=== PATIENT | female | born 1975 | race African-American/Black ===

== ENCOUNTER 2022-11-18 21:31 | Emergency (ER) | payer OTHER, SELFPAY ==
--- NOTE | 2022-11-18 | ECG_ITS ---
Test Reason : CHEST PAIN Blood Pressure : / mmHG Vent. Rate : 067 BPM Atrial Rate : 067 BPM P-R Int : 176 ms QRS Dur : 086 ms QT Int : 396 ms P-R-T Axes : 070 031 060 degrees QTc Int : 418 ms Normal sinus rhythm with sinus arrhythmia T wave abnormality, consider anterior ischemia Abnormal ECG No previous ECGs available Referred By: Generic ED Physician Electronically Signed By:Bridger Smith
[2022-11-18 21:41] VITALS: BP 122/78; BP 134/78; PULSE 67; PULSE 68; RESP 20; TEMP 37.2; O2SAT 100; O2SAT 98; BMI 31.9
[2022-11-18 22:07] LABS: Hematocrit 39.4 % (37.0-47.0); Hemoglobin 12.4 g/dl (12.0-16.0); Mean Corpuscular HGB Conc 31.5 g/dl (31.0-35.0); Mean Corpuscular Hemoglobin 25.2 pg (27.0-33.0); Mean Corpuscular Volume 79.9 fL (80.0-98.0); Mean Platelet Volume 11.6 fL (9.4-12.3); Platelet Count 212 X10*3/uL (160-400); Red Blood Count 4.93 X10*6/uL (4.20-5.50); Red Cell Distribution Width 13.2 % (11.0-16.0)
[2022-11-18 22:23] LABS: Alanine Aminotransferase 13 U/L (0-31); Albumin Level 3.9 g/dL (3.5-5.0); Alkaline Phosphatase 79 U/L (39-117); Anion Gap 10 (12-20); Aspartate Amino Transferase 17 U/L (5-31); Bilirubin Total 0.2 mg/dL (0.0-1.0); Blood Urea Nitrogen 8 mg/dL (9-16); Calcium 8.9 mg/dL (8.4-10.2); Carbon Dioxide 29 mmol/L (22-29); Chloride 106 mmol/L (96-108); Creatinine Clr Calc Pharmacy 70.3; Estimated Glomerular Filt Rate > 60; Glucose Random 89 mg/dL (60-115); Potassium 4.3 mmol/L (3.3-5.1); Sodium 141 mmol/L (135-145)
[2022-11-18 22:30] LABS: Troponin-I High Sensitivity < 2.7 ng/L (<3.5-17.0)
[2022-11-18 23:18] VITALS: BP 126/78; PULSE 64; RESP 16; TEMP 36.9; O2SAT 98
--- NOTE | 2022-11-18 23:20 | ED_ITS ---
HPI - Chest Pain General Chief Complaint: Chest Pain Stated Complaint: CHEST PAIN X 3 DAYS Time Seen by Provider: 11/18/22 23:19 Source: patient Mode of arrival: ambulatory Limitations: no limitations History of Present Illness HPI narrative: Patient With no significant cardiac history in the past increased anxiety and stress complaining of mid chest pain for last 3 days increase on palpation no shortness of breath has slight nausea no radiation of the pain has poor sleep Related Data Previous Rx's Medication Instructions Recorded ibuprofen 600 mg tablet 600 mg PO Q6H PRN fever or pain 11/18/22 #30 tabs lorazepam 1 mg tablet (Ativan) 1 mg PO BEDTIME PRN anxiety #10 11/18/22 tabs Allergies Allergy/AdvReac Type Severity Reaction Status Date / Time cinnamon AdvReac Hives Verified 11/18/22 21:54 pepper (genus Capsicum) AdvReac Anaphylaxis Verified 11/18/22 21:54 Review of Systems Review of Systems: Yes all other systems are reviewed and are negative [facility] Social History Social History Alcohol intake: never Smoked in Last 30 Days: No Use of substances other than those prescribed or required for medical reasons: No Advance Directives: No Advance Directives Information Provided: No Patient : No Physical Exam Vital Signs: Vital Signs: Last Vital Signs Temp 98.4 F 11/18/22 23:18 Pulse 64 11/18/22 23:18 Resp 16 11/18/22 23:18 BP 126/78 11/18/22 23:18 Pulse Ox 98 11/18/22 23:18 O2 Del Method Room Air 11/18/22 21:41 BMI result Body Mass Index 31.9 Appearance: Alert. Oriented X3. No acute distress. Eyes: PERRLA, No Nystagmus ENT: Pharynx normal. Oral Mucosa moist Neck: Normal inspection. Neck supple. CVS: Normal heart rate and rhythm. Pulses normal. Chest wall tenderness right intercostal space Respiratory: No respiratory distress. Equal air entry bilateral, no wheezing/rales/rhonchi Abdomen: Soft and nontender. Bowel sounds are present, no mass palpable, no CVA tenderness Skin: Skin warm and dry. Normal skin color. Normal skin turgor. Extremities: No lower extremity edema. No calf tenderness Neuro: Oriented X 3. No motor deficit. No sensory deficit.No cerebellar signs , cranial nerves II-XII intact Medications Administered Discontinued Medications Generic Name Dose Route Start Last Admin Trade Name Erick PRN Reason Stop Dose Admin Ibuprofen 600 mg 11/18/22 23:50 11/19/22 00:10 Ibuprofen 600 Mg Tablet PO 11/18/22 23:51 600 mg ONCE ONE Administration Lorazepam 1 mg 11/18/22 23:50 11/19/22 00:10 Lorazepam 1 Mg Tablet PO 11/18/22 23:51 1 mg ONCE ONE Administration Medical Decision Making Differential Diagnosis Differential Diagnoses: The differential diagnosis associated with the presentation includes ACS/non STEMI/costochondritis Lab Data MDM Lab Attestation statement: I reviewed the patient's lab results. 11/18/22 22:02 11/18/22 22:02 Labs: Lab Results 11/18/22 11/18/22 11/18/22 Range/Units 22:02 22:02 22:02 WBC 7.0 (4.8-10.8) X10*3/uL RBC 4.93 (4.20-5.50) X10*6/uL Hgb 12.4 (12.0-16.0) g/dl Hct 39.4 (37.0-47.0) % MCV 79.9 L (80.0-98.0) fL MCH 25.2 L (27.0-33.0) pg MCHC 31.5 (31.0-35.0) g/dl RDW 13.2 (11.0-16.0) % Plt Count 212 (160-400) X10*3/uL MPV 11.6 (9.4-12.3) fL Absolute Nucleated RBC 0.000 (0.0-0.012) X10*3/uL Nucleated RBC % (auto) 0.0 (0.0-0.2) /100WBC Sodium 141 (135-145) mmol/L Potassium 4.3 (3.3-5.1) mmol/L Chloride 106 (96-108) mmol/L Carbon Dioxide 29 (22-29) mmol/L Anion Gap 10 L (12-20) BUN 8 L (9-16) mg/dL Creatinine 0.87 (0.5-1.4) mg/dL Estim Creat Clear Calc 70.3 Estimated GFR > 60 Random Glucose 89 (60-115) mg/dL Calcium 8.9 (8.4-10.2) mg/dL Total Bilirubin 0.2 (0.0-1.0) mg/dL AST 17 (5-31) U/L ALT 13 (0-31) U/L Alkaline Phosphatase 79 (39-117) U/L Troponin I High Sens < 2.7 (<3.5-17.0) ng/L Total Protein 7.0 (6.5-8.0) g/dL Albumin 3.9 (3.5-5.0) g/dL Independent Interpretation I performed an independent interpretation of an: EKG Interpretation: Normal sinus rhythm heart rate 64 beats per minute normal interval normal axis no acute ST wave changes no acute ischemia Discharge Plan Discharge Clinical Impression: Atypical chest pain, Costalchondritis Patient Disposition: Home, Self-Care Instructions: Costochondritis (ED), Chest Wall Pain (ED) Additional Instructions: Take ibuprofen for pain as prescribed The chest pain is not from the heart, likely inflammation of the cartilage Take medicine for anxiety/sleep as prescribed [place] ibuprofeno para el dolor seg?n lo prescrito El dolor de pecho no es del coraz?n, probablemente inflamaci?n del cart?fanny [place] medicamentos para la ansiedad/marcio?o seg?n lo prescrito Prescriptions: New ibuprofen 600 mg tablet 600 mg PO Q6H PRN (Reason: fever or pain) Qty: 30 0RF lorazepam [Ativan] 1 mg tablet 1 mg PO BEDTIME PRN (Reason: anxiety) Qty: 10 0RF Interventions: ED Discharge Assessment Last Done: 11/19/22 00:12 Discharge Date/Time: 11/19/22 00:22 Print Language: Pashto
[2022-11-19] MEDS: Ibuprofen 600 MG TABLET PO (00:10)
[2022-11-19] MEDS: LORazepam 1 MG TABLET PO (00:10)
== END 2022-11-19 00:22 | disposition home or self-care (01) ==
PROVIDERS: Emergency Provider Internal Medicine
DX: R07.89 Other chest pain (principal); M94.0 Chondrocostal junction syndrome [Tietze]
CPT/HCPCS: 36415; 80053; 84484; 85027; 93005; 99283; 99285

== ENCOUNTER → 2022-11-18 21:42 | Outpatient (BNV) | payer OTHER, SELFPAY | PROVIDERS: Emergency Provider Internal Medicine; Visit Provider Internal Medicine Cardiovascular Disease | DX: I49.9 Cardiac arrhythmia, unspecified (principal) | CPT/HCPCS: 93010 ==

== ENCOUNTER 2023-04-27 18:15 | Emergency (ER) | payer OTHER, SELFPAY ==
--- NOTE | ~2023-04-27 | CT_ITS ---
EXAMINATION: CT ANGIOGRAM HEAD CT ANGIOGRAM NECK CLINICAL INFORMATION: Headache. Left-sided weakness. COMPARISON: CT head from 04/27/2023. TECHNIQUE: Initial noncontrast events solutions consultant imaging of the head and neck was performed. Comparison is made with noncontrast head CT from earlier today. Test bolus sequences followed by intravenous administration 70 mL of Omnipaque 350. Helical imaging was performed in the axial plane from the aortic arch to the skull vertex. Delayed postcontrast imaging of the head was also performed. The data was processed at the nuclear medicine technologist's workstation for generation of MIP sequences. Angled MIPs and volume rendered reformatted images were also generated at an offline 3D workstation. Stenoses are assessed in accordance with NASCET criteria unless otherwise indicated. This CT examination was performed using dose optimization techniques as appropriate, variously including the following: *Automated exposure control. *Adjustment of mA and/or kV according to patient size (this includes techniques or standardized protocols for targeted exams where dose is matched to indication/reason for exam; i.e. extremities or head). *Use of iterative reconstruction technique. DLP: 1428 mGy-cm FINDINGS: CT Head: There is no evidence of acute intracranial hemorrhage or edematous territorial infarction. Jett-white matter differentiation is preserved. There is no abnormal attenuation within the brain parenchyma. The ventricles are normal in morphology and size. No evidence for obstructive hydrocephalus. No abnormal mass effect or midline shift. No extra-axial fluid collections. No pathologic intra-axial enhancement or regional oligemia. No acute soft tissue or osseous abnormalities. Mild mucosal thickening of the paranasal sinuses. The mastoid air cells and middle ear cavities are clear. Periapical lucency associated with the mandibular right central and lateral incisors. CT Neck: The thyroid gland and remaining cervical soft tissues are within normal limits. Mild multilevel degenerative spondyloarthropathy of the cervical spine. CT Upper Chest: Narrowing of the left brachiocephalic vein between the aortic arch and the sternum. Associated reflux of venous contrast into collaterals within the left-sided of neck. The visualized lung apices and upper mediastinum are within normal limits. Neck CTA: Aortic Arch: Normal contour and caliber. Classic 3 vessel branching pattern of the aortic arch. Great Vessel Origins: No significant stenosis of the branch origins. Right Common Carotid Artery: No focal stenosis or occlusion. 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 Otherwise, normal opacification without focal stenosis or occlusion. Left Common Carotid Artery: No focal stenosis or occlusion. Cervical Left Internal Carotid Artery: Normal opacification without focal stenosis or occlusion. Cervical Right Vertebral Artery: No focal stenosis or occlusion. Cervical Left Vertebral Artery: Mildly dominant. No focal stenosis or occlusion. Brain CTA: Intracranial Internal Carotid Arteries: Calcific atherosclerotic disease of the intracranial internal carotid arteries without occlusion. Moderate stenoses of the supraclinoid segments bilaterally. Right Anterior Cerebral Artery: Normal A1 segment. Normal opacification of the distal HAWK segments. Left Anterior Cerebral Artery: Normal A1 segment. Normal opacification of the distal HAWK segments. Anterior Communicating Artery: Normal. Right Middle Cerebral Artery: Normal M1 segment of the MCA without focal stenosis or occlusion. Normal arborization of the distal segments. Left Middle Cerebral Artery: Normal M1 segment of the MCA without focal stenosis or occlusion. Normal arborization of the distal segments. Right Vertebral Artery: Normal V4 segment. The posterior inferior cerebellar artery is not well opacified; however, there is no CT evidence of acute occlusion. Left Vertebral Artery: Normal V4 segment. Normal opacification of the proximal segments of the posterior inferior cerebellar artery. Basilar Artery: Normal without focal stenosis or occlusion. Normal appearance of the proximal superior cerebellar arteries. Right Posterior Cerebral Artery: Normal P1 segment. Normal opacification of the distal MARKET RESEARCH COORDINATOR segments. Left Posterior Cerebral Artery: Normal P1 segment. Normal opacification of the distal MARKET RESEARCH COORDINATOR segments. Normal opacification of the superior sagittal, straight, transverse, and sigmoid sinuses. CT/CT angio head neck stroke IMPRESSION: 1. No evidence of acute intracranial hemorrhage or edematous territorial infarction. 2. CTA of the head and neck without proximal occlusion. Moderate atherosclerotic stenoses of the supraclinoid segments of the ICAs bilaterally. 3. 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 This critical result was discussed with Dr. Schofield at 19:41 on 04/27/2023 and it was ascertained that the content and urgency of the report was understood at the time of direct communication.
--- NOTE | ~2023-04-27 | CT_ITS ---
EXAMINATION: CT HEAD WITHOUT CONTRAST CLINICAL INFORMATION: Left-sided weakness. Cerebrovascular accident. COMPARISON: None available. TECHNIQUE: Contiguous axial imaging was performed from the skull base to vertex without intravenous administration of contrast. This CT examination was performed using dose optimization techniques as appropriate, variously including the following: *Automated exposure control. *Adjustment of mA and/or kV according to patient size (this includes techniques or standardized protocols for targeted exams where dose is matched to indication/reason for exam; i.e. extremities or head). *Use of iterative reconstruction technique. DLP: 640 mGy-cm FINDINGS: There is no evidence of acute intracranial hemorrhage or edematous territorial infarction. Jett-white matter differentiation is preserved. There is no abnormal attenuation within the brain parenchyma. The ventricles are normal in morphology and size. No evidence for obstructive hydrocephalus. No abnormal mass effect or midline shift. No extra-axial fluid collections. Calcific atherosclerotic disease of the intracranial internal carotid arteries. No hyperdense vessel sign. No acute soft tissue or osseous abnormalities. Mild mucosal thickening of the paranasal sinuses. The mastoid air cells and middle ear cavities are clear. CT/CT head for stroke IMPRESSION: No evidence of acute intracranial hemorrhage or edematous territorial infarction. This critical result was discussed with at 18:44 on 04/27/2023 and it was ascertained that the content and urgency of the report was understood at the time of direct communication.
--- NOTE | 2023-04-27 18:23 | ED_ITS ---
HPI - Headache General Chief Complaint: Stroke Stated Complaint: pressure/burning feeling in head Time Seen by Provider: 04/27/23 18:31 Source: patient Mode of arrival: ambulatory Limitations: language barrier History of Present Illness HPI Narrative: Patient's history of migraine headache complaining of headache on the right side with light sensitivity similar to that in the past at the triage nurse noticed slight weakness on the left side patient also does have history of anxiety used to be on lorazepam changed to Seroquel has not taken her lorazepam for a while unable to sleep patient ambulatory as such without any significant weakness does have light sensitivity and headache similar to that in the past which she gets almost every week Related Data Previous Rx's Medication Instructions Recorded ibuprofen 600 mg tablet 600 mg PO Q6H PRN fever or pain 11/18/22 #30 tabs lorazepam 1 mg tablet (Ativan) 1 mg PO BEDTIME PRN anxiety #10 11/18/22 tabs lmvbubkgjf-wdlhjbmhhameo-lbgcfbkd 1 tab PO Q6H PRN haeadace #20 tabs 04/27/23 50 mg-325 mg-40 mg tablet Allergies Allergy/AdvReac Type Severity Reaction Status Date / Time cinnamon AdvReac Hives Verified 04/27/23 18:25 pepper (genus Capsicum) AdvReac Anaphylaxis Verified 11/18/22 21:54 Review of Systems 2 Review of Systems: Yes all other systems are reviewed and are negative PMFSH Past Medical History Onset Date is defined in the Problem List Problems that require an onset date and time if occurred within 24 hrs of arrival to the ED Aortic Dissection and Rupture; Neurologic impairment; Cardiopulmonary Arrest; Endotracheal Intubation; Insertion or Replacement of Mechanical Circulatory Assist Device Medical History Migraine Social History Social History Alcohol intake: never Smoked in Last 30 Days: No Use of substances other than those prescribed or required for medical reasons: No Advance Directives: No Advance Directives Information Provided: No Patient : No Physical Exam 2 Vital Signs: Vital Signs: Last Vital Signs Temp 98.0 F 04/27/23 22:19 Pulse 69 04/27/23 22:19 Resp 16 04/27/23 22:19 BP 131/86 04/27/23 22:19 Pulse Ox 100 04/27/23 22:19 O2 Del Method Room Air 04/27/23 22:19 BMI result Body Mass Index 29.3 Appearance: Alert. Oriented X3. No acute distress. Eyes: PERRLA, No Nystagmus light sensitivity++ ENT: Pharynx normal. Oral Mucosa moist Neck: Normal inspection. Neck supple. CVS: Normal heart rate and rhythm. Pulses normal. Respiratory: No respiratory distress. Equal air entry bilateral, no wheezing/rales/rhonchi Abdomen: Soft and nontender. Bowel sounds are present, no mass palpable, no CVA tenderness Skin: Skin warm and dry. Normal skin color. Normal skin turgor. Extremities: No lower extremity edema. No calf tenderness Neuro: Oriented X 3. No motor deficit. No sensory deficit.No cerebellar signs , cranial nerves II-XII intact NIH Stroke Scale Internal: Initial- Upon Arrival Level of Consciousness: Alert Level of Consciousness Questions: Answers both questions correctly Level of Consciousness Commands: Performs both tasks correctly Best Gaze: Normal Visual: No visual loss Facial Palsy: Normal Motor Arm (Right): No drift Motor Arm (Left): No drift Motor Leg (Right): No drift Motor Leg (Left): No drift Limb Ataxia: Absent Sensory: Normal Best Language: No aphasia Dysarthia: Normal Extinction and Inattention: No abnormality Score: 0 Course Course Course Narrative: This is an RME: Additional HPI, ROS, PE not included below will be deferred to primary provider. This is a 33-rhzw-lta-female, with a hx of migraines, epilepsy, asthma, presenting to the ER with complaints of headache x 3 days. Reports that this headache worsens with light. Reporting burning on the right side of her face. Reports some congestion, no cough or fevers. Reporting some left arm weakness and left-sided facial weakness since this afternoon approximately 1:00 p.m. Patient does have left-sided facial droop and left pronator drift. Informed Dr. Schofield, patient immediately brought back to room for further workup Medications Administered Discontinued Medications Generic Name Dose Route Start Last Admin Trade Name Freq PRN Reason Stop Dose Admin Acetaminophen/Butalbital/Caffeine 1 tab 04/27/23 20:27 04/27/23 20:33 Butalb/Acetamin/Caff 50/325/40 Tablet PO 04/27/23 20:28 1 tab ONCE ONE Administration Diphenhydramine HCl 25 mg 04/27/23 20:26 04/27/23 20:35 Diphenhydramine Hcl 50 Mg/Ml Vial IVPUSH 04/27/23 20:27 25 mg ONCE ONE Administration Sodium Chloride 1,000 mls @ 999 mls/hr 04/27/23 20:26 04/27/23 20:34 Ns IV 04/27/23 21:26 999 mls/hr .Q1H1M ONE Administration Iohexol 100 ml 04/27/23 18:54 04/27/23 18:55 Iohexol 350 Mg/Ml 100 Ml Infus..Btl IV 04/27/23 18:55 70 ml ONCE ONE Administration Ketorolac Tromethamine 30 mg 04/27/23 20:26 04/27/23 20:37 Ketorolac Tromethamine 30 Mg/Ml Vial IVPUSH 04/27/23 20:27 30 mg ONCE ONE Administration Lorazepam 1 mg 04/27/23 21:20 04/27/23 21:30 Lorazepam 1 Mg Tablet PO 04/27/23 21:21 1 mg ONCE ONE Administration Ondansetron HCl 4 mg 04/27/23 19:13 04/27/23 19:21 Ondansetron Hcl 4 Mg/2 Ml Vial IVPUSH 04/27/23 19:14 4 mg ONCE ONE Administration Sumatriptan Succinate 6 mg 04/27/23 19:13 04/27/23 19:21 Sumatriptan Succinate 6 Mg/0.5 Ml Vial SUBCUT 04/27/23 19:14 6 mg ONCE ONE Administration Medical Decision Making Medical Decision Making [facility] Narrative: Patient with migraine headache with questionable weakness of the left side at the triage onset was around 1pm patient had a CT scan of the head and CTA head and neck which was negative symptoms likely from migraine no focal deficit noticed examination in the ER patient ambulatory steady gait will discharge patient home advised to continue her medication and take Fioricet for headache Differential Diagnosis Differential Diagnoses: The differential diagnosis associated with the presentation includes Complex migraine/CVA/TIA/functional weakness Lab Data [facility] Lab Attestation statement: I reviewed the patient's lab results. 04/27/23 19:12 04/27/23 19:12 Labs: Lab Results 04/27/23 04/27/23 04/27/23 Range/Units 19:05 19:06 19:12 WBC 7.0 (4.8-10.8) X10*3/uL RBC 5.54 H (4.20-5.50) X10*6/uL Hgb 13.5 (12.0-16.0) g/dl Hct 42.2 (37.0-47.0) % MCV 76.2 L (80.0-98.0) fL MCH 24.4 L (27.0-33.0) pg MCHC 32.0 (31.0-35.0) g/dl RDW 13.9 (11.0-16.0) % Plt Count 243 (160-400) X10*3/uL MPV 11.3 (9.4-12.3) fL Immature Gran % (Auto) 0.3 (0.0-0.4) % Neut % (Auto) 43.8 L (45-73) % Lymph % (Auto) 38.4 (20-40) % [place] % (Auto) 10.0 (2-11) % Eos % (Auto) 6.8 H (0-4) % Baso % (Auto) 0.7 (0-2) % Lymph # (Auto) 2.7 (1.2-4.9) X10*3/uL [place] # (Auto) 0.7 (0.1-1.2) X10*3/uL Eos # (Auto) 0.5 H (0.0-0.4) X10*3/uL Baso # (Auto) 0.1 (0.0-0.2) X10*3/uL Abs Immat Gran (auto) 0.02 (0.00-0.03) X10*3/uL Absolute Neuts (auto) 3.1 (2.0-8.3) x10*3/uL Absolute Nucleated RBC 0.000 (0.0-0.012) X10*3/uL Nucleated RBC % (auto) 0.0 (0.0-0.2) /100WBC PT 12.4 (11.1-13.3) SEC Whole Blood PT 12.9 (11.1-13.5) sec INR 1.0 (0.9-1.1) Whole Blood INR 1.1 (0.9-1.1) APTT 35.0 (26.0-36.4) SEC Sodium 142 (135-145) mmol/L Potassium 4.0 (3.3-5.1) mmol/L Chloride 106 (96-108) mmol/L Carbon Dioxide 29 (22-29) mmol/L Anion Gap 11 L (12-20) BUN 9 (9-16) mg/dL Creatinine 0.93 (0.5-1.4) mg/dL Estim Creat Clear Calc 62.9 Estimated GFR > 60 POC Glucose 78 (60-115) mg/dL Random Glucose 70 (60-115) mg/dL Calcium 9.5 D (8.4-10.2) mg/dL Total Creatine Kinase 74 (26-140) U/L Troponin I High Sens < 2.7 (<3.5-17.0) ng/L Independent Interpretation I performed an independent interpretation of an: CT Scan Radiology Impression Discussion of test interpretation with radiology: I have reviewed the radiologist's reading. Discharge Plan Discharge Clinical Impression: Migraine headache Patient Disposition: Home, Self-Care Instructions: Migraine Headache (ED) Additional Instructions: rest at home Take medication as prescribed for migraine headache Continue to take Seroquel as prescribed byyour PCP for sleep [place]cans[place] en [place] los medicamentos recetados para la migra?a. Contin?e tomando Seroquel seg?n lo recetado por muhammad PCP para dormir. Prescriptions: New vizljqtupf-dcwsfdynzuvwl-qjzx 50-325-40 mg tablet 1 tab PO Q6H PRN (Reason: haeadace) Qty: 20 0RF No Action ibuprofen 600 mg tablet 600 mg PO Q6H PRN (Reason: fever or pain) Qty: 30 0RF lorazepam [Ativan] 1 mg tablet 1 mg PO BEDTIME PRN (Reason: anxiety) Qty: 10 0RF Print Language: Maltese
[2023-04-27 18:27] VITALS: BP 147/90; PULSE 82; RESP 20; TEMP 36.7; O2SAT 99; BMI 29.3
[2023-04-27] MEDS: iohexoL 350 MG/ML 100 ML INFUS..BTL IV (18:55)
[2023-04-27 19:12] LABS: Glucose, Whole Blood 78 mg/dL (60-115)
[2023-04-27 19:12] LABS: Prothrombin Time Whole Bld POC 12.9 sec (11.1-13.5); ~PT, ~INR - Anti Coag Clinic 1.1 (0.9-1.1)
[2023-04-27 19:16] LABS: MANUAL DIFF FLAG NO
[2023-04-27 19:19] LABS: Basophils Absolute Auto 0.1 X10*3/uL (0.0-0.2); Basophils Percent Auto 0.7 % (0-2); Eosinophils Absolute Auto 0.5 X10*3/uL (0.0-0.4); Eosinophils Percent Auto 6.8 % (0-4); Hematocrit 42.2 % (37.0-47.0); Hemoglobin 13.5 g/dl (12.0-16.0); Imm Gran Abs Auto 0.02 X10*3/uL (0.00-0.03); Imm Gran Pct Auto 0.3 % (0.0-0.4); Lymphocytes Absolute Auto 2.7 X10*3/uL (1.2-4.9); Lymphocytes Percent Auto 38.4 % (20-40); Mean Corpuscular Hemoglobin 24.4 pg (27.0-33.0); Mean Corpuscular Volume 76.2 fL (80.0-98.0); Mean Platelet Volume 11.3 fL (9.4-12.3); Monocytes Absolute Auto 0.7 X10*3/uL (0.1-1.2); Neutrophils Absolute Auto 3.1 x10*3/uL (2.0-8.3); Neutrophils Percent Auto 43.8 % (45-73); Platelet Count 243 X10*3/uL (160-400); Red Blood Count 5.54 X10*6/uL (4.20-5.50); Red Cell Distribution Width 13.9 % (11.0-16.0)
[2023-04-27] MEDS: SUMAtriptan succinate 6 MG/0.5 ML VIAL SUBCUT (19:21)
[2023-04-27] MEDS: ondansetron HCL 4 MG/2 ML VIAL IVPUSH (19:21)
[2023-04-27 19:24] LABS: Prothrombin Time 12.4 SEC (11.1-13.3)
--- NOTE | 2023-04-27 19:30 | PC.NURSE ---
this rn assumed care of pt @ 1900. per dr barrett pt not stroke alert, with no noted deficits. pt report migraine PLASENCIA 01/21 dr barrett declines need for ekg
[2023-04-27 19:32] LABS: Anion Gap 11 (12-20); Blood Urea Nitrogen 9 mg/dL (9-16); Calcium 9.5 mg/dL (8.4-10.2); Carbon Dioxide 29 mmol/L (22-29); Chloride 106 mmol/L (96-108); Creatinine Clr Calc Pharmacy 62.9; Estimated Glomerular Filt Rate > 60; Glucose Random 70 mg/dL (60-115); Sodium 142 mmol/L (135-145)
[2023-04-27 19:36] LABS: Stroke Lab Use COMPLETE
[2023-04-27 19:39] LABS: Troponin-I High Sensitivity < 2.7 ng/L (<3.5-17.0)
[2023-04-27] MEDS: Butalb/Acetamin/Caff 50/325/40 TABLET 1 TAB PO (20:33)
[2023-04-27] MEDS: 0.9 % Sodium Chloride 1,000 ML 999 ML IV (20:34)
[2023-04-27] MEDS: diphenhydrAMINE HCL 50 MG/ML VIAL 25 MG IVPUSH (20:35)
[2023-04-27] MEDS: Ketorolac Tromethamine 30 MG/ML VIAL IVPUSH (20:37)
[2023-04-27] MEDS: LORazepam 1 MG TABLET PO (21:30)
--- NOTE | 2023-04-27 22:14 | MHC.EDTECH ---
Per provider Cancel EKG
[2023-04-27 22:19] VITALS: BP 131/86; PULSE 69; RESP 16; TEMP 36.7; O2SAT 100
--- NOTE | 2023-04-27 22:35 | PC.NURSE ---
pt reports pain down to 8/10 at time of discharge. pt daughter remains at bedside. pt ambulatory at discharge vss. pt provided with discharge packet. pt verbalized understanding of discharge plan. phd internship used at time of discharge
== END 2023-04-27 22:39 | disposition home or self-care (01) ==
PROVIDERS: Emergency Provider Internal Medicine; PCP Internal Medicine
DX: G43.909 Migraine, unspecified, not intractable, without status migrainosus (principal); R09.81 Nasal congestion; M62.81 Muscle weakness (generalized); M54.2 Cervicalgia; Z79.899 Other long term (current) drug therapy
CPT/HCPCS: 36415; 70450; 70496; 70498; 80048; 82550; 82947; 84484; 85025; 85610; 85730; 96372; 96374; 96375; 99284; J1200; J1885; J2405; J3030; Q9967

== ENCOUNTER 2024-01-02 18:35 | Emergency (ER) | payer OTHER, SELFPAY ==
--- NOTE | ~2024-01-02 | XR_ITS ---
EXAMINATION: XR ANKLE, LEFT CLINICAL INFORMATION: Lateral echo. COMPARISON: None available. TECHNIQUE: AP, lateral, and mortise views of the left ankle. FINDINGS: No fracture. Alignment is anatomic. No erosions. Joint spaces are maintained. Lateral soft tissue swelling XR/XR ankle LT min 3V IMPRESSION: No acute traumatic injury to the ankle. Electronically signed by: Jameson Ward DO 01/02/2024 08:36 PM EDT
--- NOTE | ~2024-01-02 | XR_ITS ---
EXAMINATION: XR FOOT, LEFT CLINICAL INFORMATION: Dorsal foot pain status post fall COMPARISON: None available. TECHNIQUE: AP, lateral, and oblique views of the left foot. FINDINGS: The bones and soft tissues are normal. No fracture. Alignment is anatomic. Joint spaces are maintained. XR/XR foot LT min 3V IMPRESSION: Normal left foot. Electronically signed by: Adam Posada MD 01/02/2024 08:36 PM EDT RP
[2024-01-02 18:58] VITALS: BP 119/78; PULSE 81; RESP 16; TEMP 36.3; O2SAT 98; BMI 32.3
--- NOTE | 2024-01-02 19:13 | ED_ITS ---
HPI - Extremity Injury (Lower) General Chief Complaint: Extremity Injury, Lower Stated Complaint: L ankle pain from fall Time Seen by Provider: 01/02/24 20:44 Source: patient Mode of arrival: ambulatory Limitations: no limitations History of Present Illness ED Provider: RICK IQBAL PA-C HPI Narrative: 48 year old female presents to the ED today for evaluation of left ankle/foot pain times 24 hours. Patient reports playing around with her friend at 1830 last night when her friend fell onto her left ankle/ foot. She was able to stand and ambulate all day at work today. Now endorses increasing pain and swelling to her left ankle. No ccqd-hks-cziqvar pain meds prior to arrival in ED. Denies numbness/tingling/weakness of the lower extremity. Related Data Previous Rx's ?Medication ?Instructions ?Recorded ibuprofen 600 mg tablet 600 mg PO Q6H PRN fever or pain 11/18/22 #30 tabs lorazepam 1 mg tablet (Ativan) 1 mg PO BEDTIME PRN anxiety #10 11/18/22 tabs bykvsiqzum-eqrvrpnfymdpi-rsbrfdea 1 tab PO Q6H PRN haeadace #20 tabs 04/27/23 50 mg-325 mg-40 mg tablet Allergies Allergy/AdvReac Type Severity Reaction Status Date / Time cinnamon AdvReac Hives Verified 01/02/24 19:00 pepper (genus Capsicum) AdvReac Anaphylaxis Verified 01/02/24 19:00 Review of Systems Review of Systems: Constitutional: No fever, chills, fatigue, night sweats, weight changes ENT/Mouth: No ear pain, hearing loss, nasal congestion, sinus pain, rhinorrhea, sore throat Eyes: No eye pain, swelling, redness, vision changes, discharge Cardio: No chest pain, palpitations, [place], orthopnea, peripheral edema Pulm: No SOB, cough, sputum, wheezing, dyspnea, hemoptysis GI: No nausea, vomiting, hematemesis, abdominal pain, diarrhea, constipation, hematochezia, melena : No irregular bleeding, dysuria, frequency, urgency, hesitancy, hematuria, flank pain, urinary flow changes, urinary incontinence or retention MSK: No back pain, neck pain, joint pain, myalgias, +left ankle pain Skin: No lesions, rashes Neuro: No weakness, numbness, paresthesias, LOC, dizziness, headache Psych: No anxiety/panic, depression, SI/HI, AH/VH All other systems reviewed and are negative. [facility] Past Medical History Attestation statement: The following information was validated with the patient. Source: old records reviewed and nursing notes reviewed Medical History Migraine Social History Social History Alcohol intake: never Physical Exam Vital Signs: Vital Signs: Last Vital Signs Temp 97.4 F 01/02/24 18:58 Pulse 81 01/02/24 18:58 Resp 16 01/02/24 18:58 BP 119/78 01/02/24 18:58 Pulse Ox 98 01/02/24 18:58 O2 Del Method Room Air 01/02/24 18:58 BMI result Body Mass Index 32.3 Vital signs stable, afebrile General: Well appearing, in no acute distress. Skin: Warm, dry, intact. No rashes or lesions. Head: Normocephalic, atraumatic. Neck: Supple without LAD. FROM. Trachea midline.? Cardiac: Chest wall symmetric. RRR. No MRG. No JVD. Lungs: Normal respiratory effort without accessory muscle use. CTA bilaterally. No rales, rhonchi, or wheezes.? Ext: +minimal swelling noted to lateral left ankle. No overlying skin changes. Tender to palpation without palpable deformity or crepitus. 2+ PT/DP pulse intact. ROM intact with pain. Sensation intact. No calf tenderness. Neuro: AOx3. Normal speech. NV intact distally. Reflexes 2+ bilaterally. Ambulating with steady gait. Psych: Appropriate mood and affect. Responds appropriately to questions. Course Course Course Narrative: This is a Rapid Medical Examination (RME) performed by Isabel Iqbal PA-C in triage. Full HPI, ROS, assessment and treatment plan per primary provider in the Main ED. 48 yo female here for eval of left ankle/foot pain radiating upward after her friend fell on top of her yesterday while playing around. Was able to ambulate at work all day today. Reports increased pain and swelling to the lateral aspect of her ankle. no OTC pain meds. + mild swelling to lateral left ankle. Tender to palpation. Plan: xrs Reevaluation(s) Reevaluation #1: 2054 -- x-rays do not demonstrate fracture. Patient likely with left ankle sprain. Sonny wrap applied. Educated on rice therapy. Patient has remained stable throughout ED visit today. Discussed worrisome signs and symptoms and whe n to return to the ED. All questions answered at this time. Patient is agreeable with disposition and stable for discharge. Medical Decision Making Medical Decision Making MDM Narrative: 48 year old female presents to the ED today for evaluation of left ankle/foot pain times 24 hours. Vital signs stable, afebrile. She is nontoxic appearing in no acute distress. Ambulated with limping gait into the ED, switched over to wheelchair. On exam, there is minimal swelling noted to lateral left ankle. No overlying skin changes. Tender to palpation without palpable deformity or crepitus. 2+ PT/DP pulse intact. ROM intact with pain. Sensation intact. No calf tenderness. Differential diagnosis includes MSK sprain/strain, fracture. Unlikely dislocation. Presentation not consistent with gout, pseudogout, Lyme arthritis, septic joint, neurovascular compromise, threat to limb, compartment syndrome. Plan for imaging and re-evaluation. Differential Diagnosis Differential Diagnoses: The differential diagnosis associated with the presentation includes As above Admission/Observation Not indicated Independent Interpretation I performed an independent interpretation of an: Plain X-Ray Interpretation: X-ray left ankle/foot without acute fracture, agree with radiologist's interpretation. Radiology Impression Discussion of test interpretation with radiology: I have reviewed the radiologist's reading. Radiologist Impression: EXAMINATION: XR ANKLE, LEFT CLINICAL INFORMATION: Lateral echo. COMPARISON: None available. TECHNIQUE: AP, lateral, and mortise views of the left ankle. FINDINGS: No fracture. Alignment is anatomic. No erosions. Joint spaces are maintained. Lateral soft tissue swelling XR/XR ankle LT min 3V IMPRESSION: No acute traumatic injury to the ankle. Electronically signed by: Jameson Ward DO 01/02/2024 08:36 PM EDT EXAMINATION: XR FOOT, LEFT CLINICAL INFORMATION: Dorsal foot pain status post fall COMPARISON: None available. TECHNIQUE: AP, lateral, and oblique views of the left foot. FINDINGS: The bones and soft tissues are normal. No fracture. Alignment is anatomic. Joint spaces are maintained. XR/XR foot LT min 3V IMPRESSION: Normal left foot. Electronically signed by: Adam Posada MD 01/02/2024 08:36 PM EDT External Record Review External record reviewed: Inpatient record Prescription Management I considered prescription management with: Pain Medication (Tylenol, ibuprofen) Social Determinants Patient?s care significantly limited by Social Determinants of Health including: Other Social Determinant of Health Procedures Orthopedic Splinting/Casting Injury #1: Side: left Lower Extremity Injury Location: ankle Lower Extremity Immobilizer: Sonny wrap Critical Care Time Critical Care Time Critical Care Time: No Discharge Plan Discharge Clinical Impression: Left ankle sprain Patient Disposition: Home, Self-Care Instructions: Ankle Sprain (ED), How to Use an Elastic Bandage (ED), R.I.C.E. Treatment (ED) Additional Instructions: You have been evaluated in the Emergency Department today for ankle pain. Your evaluation did not demonstrate fracture. You were provided with sonny wrap to help with compression. Utilize RICE therapy -- rest, ice, compress, elevate I recommend you take 600mg ibuprofen every 6 hours or tylenol 650mg every 6 hours as needed for pain. If needed, you can alternate these medications so that you take one medication every 3 hours. For example, at noon take ibuprofen, then at 3pm take tylenol, then at 6pm take ibuprofen.? Follow up with PCP. Return to the Emergency Department if you experience worsening pain, numbness, tingling, change of color in your toes, or any other concerning symptoms. Prescriptions: No Action hvbrzrwifb-kuzvjfqniapkg-bkmo 50-325-40 mg tablet 1 tab PO Q6H PRN (Reason: haeadace) Qty: 20 0RF ibuprofen 600 mg tablet 600 mg PO Q6H PRN (Reason: fever or pain) Qty: 30 0RF lorazepam [Ativan] 1 mg tablet 1 mg PO BEDTIME PRN (Reason: anxiety) Qty: 10 0RF Stand Alone Forms: Work/School Release Print Language: French
[2024-01-02 20:56] VITALS: BP 119/78; PULSE 81; RESP 16; TEMP 36.3; O2SAT 98
== END 2024-01-02 21:00 | disposition home or self-care (01) ==
LOC: HO.ED 20:57
PROVIDERS: Emergency Provider Emergency Medicine; PCP Internal Medicine
DX: S93.402A Sprain of unspecified ligament of left ankle, initial encounter (principal); M25.572 Pain in left ankle and joints of left foot; X58.XXXA Exposure to other specified factors, initial encounter; Y93.89 Activity, other specified; Y92.89 Other specified places as the place of occurrence of the external cause; Y99.8 Other external cause status
CPT/HCPCS: 29515; 73610; 73630; 99282; 99283; 99284

== ENCOUNTER 2024-02-20 13:37 | Emergency (ER) | payer OTHER, SELFPAY ==
[2024-02-20 14:00] VITALS: BP 130/73; PULSE 70; RESP 18; TEMP 36.8; O2SAT 98; BMI 21.2
[2024-02-20 14:41] LABS: MANUAL DIFF FLAG NO
[2024-02-20 14:42] LABS: Basophils Absolute Auto 0.1 X10*3/uL (0.0-0.2); Eosinophils Absolute Auto 0.4 X10*3/uL (0.0-0.4); Eosinophils Percent Auto 5.4 % (0-4); Hemoglobin 13.4 g/dl (12.0-16.0); Imm Gran Abs Auto 0.03 X10*3/uL (0.00-0.03); Imm Gran Pct Auto 0.4 % (0.0-0.4); Lymphocytes Absolute Auto 2.3 X10*3/uL (1.2-4.9); Lymphocytes Percent Auto 33.2 % (20-40); Mean Corpuscular HGB Conc 32.7 g/dl (31.0-35.0); Mean Corpuscular Volume 76.6 fL (80.0-98.0); Mean Platelet Volume 10.5 fL (9.4-12.3); Monocytes Absolute Auto 0.8 X10*3/uL (0.1-1.2); Monocytes Percent Auto 11.1 % (2-11); Neutrophils Absolute Auto 3.3 x10*3/uL (2.0-8.3); Neutrophils Percent Auto 48.9 % (45-73); Platelet Count 222 X10*3/uL (160-400); Red Blood Count 5.35 X10*6/uL (4.20-5.50); Red Cell Distribution Width 13.7 % (11.0-16.0); White Blood Count 6.8 X10*3/uL (4.8-10.8)
[2024-02-20 15:01] LABS: Alanine Aminotransferase 36 U/L (0-31); Albumin Level 4.2 g/dL (3.5-5.0); Alkaline Phosphatase 86 U/L (39-117); Anion Gap 13 (12-20); Aspartate Amino Transferase 32 U/L (5-31); Bilirubin Total 0.2 mg/dL (0.0-1.0); Blood Urea Nitrogen 12 mg/dL (9-16); Calcium 9.8 mg/dL (8.4-10.2); Carbon Dioxide 28 mmol/L (22-29); Chloride 106 mmol/L (96-108); Creatinine Clr Calc Pharmacy 62.2; Estimated Glomerular Filt Rate > 60; Glucose Random 99 mg/dL (60-115); Potassium 4.8 mmol/L (3.3-5.1); Sodium 142 mmol/L (135-145); Total Protein 7.5 g/dL (6.5-8.0)
[2024-02-20 15:24] LABS: Influenza A PCR NEGATIVE (Negative); Influenza B PCR NEGATIVE (Negative); Resp Syncy Virus RNA Qual PCR NEGATIVE (Negative); SARS COV2 PCR INHOUSE NEGATIVE (Negative)
[2024-02-20 15:40] VITALS: BP 123/77; PULSE 62; RESP 16; TEMP 36.7; O2SAT 97
--- NOTE | 2024-02-20 15:41 | ED_ITS ---
HPI - General Adult General Chief complaint: General Medical Stated complaint: headache/dizzy/numbness in finger tips Time Seen by Provider: 02/20/24 15:39 History of Present Illness ED Provider: Dr. Good HPI narrative: 48 y/o F patient; PMH headaches, epilepsy, asthma, anxiety; presents from home reporting three days of occipital left-sided headache. Associated with pins and needles sensation in bilateral hands and lightheadedness. Patient otherwise denies: fever or chills, SOB, chest pain, cough/congestion, nausea/vomiting, abdominal pain, neck stiffness/pain, visual changes, hearing changes. Chart reviewed - patient previously seen in this department 04/27/2023 for right- sided headache with light sensitivity. Patient had CTA Head/Neck at that time which was unremarkable. She was discharged to home with diagnosis of complex migraine. Related Data Previous Rx's ?Medication ?Instructions ?Recorded ibuprofen 600 mg tablet 600 mg PO Q6H PRN fever or pain 11/18/22 #30 tabs lorazepam 1 mg tablet (Ativan) 1 mg PO BEDTIME PRN anxiety #10 11/18/22 tabs cigvnyefbh-drkeyncsynynv-mcvehfcw 1 tab PO Q6H PRN haeadace #20 tabs 04/27/23 50 mg-325 mg-40 mg tablet Allergies Allergy/AdvReac Type Severity Reaction Status Date / Time cinnamon AdvReac Hives Verified 02/20/24 14:05 pepper (genus Capsicum) AdvReac Anaphylaxis Verified 02/20/24 14:05 Review of Systems 2 Review of Systems: Yes all other systems are reviewed and are negative Neurologic: Denies Abnormal speech present and Denies Sensory deficit (Neuro) [facility] Past Medical History Attestation statement: The following information was validated with the patient. Source: old records reviewed Medical History Migraine Social History Social History Alcohol intake: never Smoked in Last 30 Days: No Use of substances other than those prescribed or required for medical reasons: No Advance Directives: No Advance Directives Information Provided: Yes Do you have a plan to hurt others: No Plan Physical Exam ED Vital Signs: Vital Signs - 24 hr 02/20/24 14:00 02/20/24 15:40 Temperature 98.2 F 98.1 F Pulse Rate 70 62 Respiratory Rate 18 16 Blood Pressure 130/73 123/77 Pulse Oximetry 98 97 Oxygen Delivery Method Room Air Room Air BMI result Body Mass Index 21.2 Patient is afebrile and hemodynamically stable Const General: cooperative and no acute distress Orientation/consciousness: patient oriented x3 HENMT Head: Yes atraumatic Eyes Pupils: Equal, round and reactive pupils present EOM: EOMs intact bilaterally Neck Neck: Yes normal visual inspection, Yes supple and No tender Chest Chest palpation & inspection: normal inspection of the chest and normal palpation of entire chest wall Resp Effort & Inspection: normal respiratory effort, able to speak in complete sentences and no cough Auscultation: clear to auscultation bilaterally Cardio Rate: regular rate Rhythm: regular rhythm Peripheral pulses: Peripheral pulses 2+ throughout GI Inspection: Yes normal to inspection, No Abdominal wall edema and No distended Palpation (GI): Soft to palpation, not firm, nontender, no guarding and not rigid Auscultation: normal bowel sounds Back/Spine/Pelvis Back: No back tenderness Neuro General: patient oriented x3 Cranial nerves: Yes Equal, round and reactive pupils present, Yes Nystagmus not present, Yes Ability to bilaterally rotate head present and Yes Ability to bilaterally elevate shoulders present Cognition (Neuro): normal cognition Speech: No Abnormal speech present Motor exam (neuro): 5/5 motor strength present throughout and Pronator motor function not present Sensory Exam: No Sensory deficit (Neuro) Coordination: evrexf-yx-zydg test normal and vbyy-zb-bzhm test normal Course Course Course Narrative: Patient is afebrile and hemodynamically stable. She has a known diagnosis of epilepsy and complex migraine with a reassuring CTA in Apr 2023. Will pursue headache symptom management. Providing Reglan, Benadryl, Tylenol, and Toradol for headache management. Adding Decadron and Valproic acid for headache prophylaxis. Patient re-evaluated multiple times. She reports improvement in her migraine, resolution of neurological symptoms including tingling in bilateral fingers. Patient is neurologically intact at this time. Plan: Discharge to home with neurology follow up Return precautions given Medications Administered Discontinued Medications Generic Name Dose Route Start Last Admin Trade Name Freq PRN Reason Stop Dose Admin Dexamethasone Sodium Phosphate 10 mg 02/20/24 15:49 02/20/24 16:04 Dexamethasone Sod Phosphate 10 Mg/Ml Vial IVPUSH 02/20/24 15:50 10 mg ONCE ONE Administration Diphenhydramine HCl 50 mg 02/20/24 15:49 02/20/24 16:04 Diphenhydramine Hcl 50 Mg/Ml Vial IVPUSH 02/20/24 15:50 50 mg ONCE ONE Administration Valproic Acid 500 mg/ Dextrose 55 mls @ 52.5 mls/hr 02/20/24 15:49 02/20/24 16:04 IV 02/20/24 16:51 52.5 mls/hr ONCE ONE Administration Acetaminophen 1,000 mg in 100 mls @ 400 mls/hr 02/20/24 15:49 02/20/24 16:19 Ofirmev IV 02/20/24 16:03 Infused ONCE ONE Infusion Ketorolac Tromethamine 15 mg 02/20/24 15:49 02/20/24 16:04 Ketorolac Tromethamine 15 Mg/Ml Vial IVPUSH 02/20/24 15:50 15 mg ONCE ONE Administration Metoclopramide HCl 10 mg 02/20/24 15:49 02/20/24 16:04 Metoclopramide Hcl 10 Mg/2 Ml Vial IVPUSH 02/20/24 15:50 10 mg ONCE ONE Administration Medical Decision Making Lab Data 02/20/24 14:34 02/20/24 14:34 Labs: Lab Results 02/20/24 02/20/24 Range/Units 14:32 14:34 WBC 6.8 (4.8-10.8) X10*3/uL RBC 5.35 (4.20-5.50) X10*6/uL Hgb 13.4 (12.0-16.0) g/dl Hct 41.0 (37.0-47.0) % MCV 76.6 L (80.0-98.0) fL MCH 25.0 L (27.0-33.0) pg MCHC 32.7 (31.0-35.0) g/dl RDW 13.7 (11.0-16.0) % Plt Count 222 (160-400) X10*3/uL MPV 10.5 (9.4-12.3) fL Immature Gran % (Auto) 0.4 (0.0-0.4) % Neut % (Auto) 48.9 (45-73) % Lymph % (Auto) 33.2 (20-40) % [place] % (Auto) 11.1 H (2-11) % Eos % (Auto) 5.4 H (0-4) % Baso % (Auto) 1.0 (0-2) % Lymph # (Auto) 2.3 (1.2-4.9) X10*3/uL [place] # (Auto) 0.8 (0.1-1.2) X10*3/uL Eos # (Auto) 0.4 (0.0-0.4) X10*3/uL Baso # (Auto) 0.1 (0.0-0.2) X10*3/uL Abs Immat Gran (auto) 0.03 (0.00-0.03) X10*3/uL Absolute Neuts (auto) 3.3 (2.0-8.3) x10*3/uL Absolute Nucleated RBC 0.000 (0.0-0.012) X10*3/uL Nucleated RBC % (auto) 0.0 (0.0-0.2) /100WBC Sodium 142 (135-145) mmol/L Potassium 4.8 (3.3-5.1) mmol/L Chloride 106 (96-108) mmol/L Carbon Dioxide 28 (22-29) mmol/L Anion Gap 13 (12-20) BUN 12 (9-16) mg/dL Creatinine 0.77 (0.5-1.4) mg/dL Estim Creat Clear Calc 62.2 Estimated GFR > 60 Random Glucose 99 (60-115) mg/dL Calcium 9.8 (8.4-10.2) mg/dL Total Bilirubin 0.2 (0.0-1.0) mg/dL AST 32 H (5-31) U/L ALT 36 H (0-31) U/L Alkaline Phosphatase 86 (39-117) U/L Total Protein 7.5 (6.5-8.0) g/dL Albumin 4.2 (3.5-5.0) g/dL Influenza Type A (PCR) NEGATIVE (Negative) Influenza Type B (PCR) NEGATIVE (Negative) RSV RNA Qual (PCR) NEGATIVE (Negative) SARS-CoV-2 RNA (RT-PCR) NEGATIVE (Negative) Discharge Plan Discharge Clinical Impression: Migraine Patient Disposition: Home, Self-Care Instructions: Migraine Headache (ED) Additional Instructions: As we discussed, you were seen today for a complex migraine. You received a number of medications: Toradol, Tylenol, Reglan, Benadryl. You also received: Decadron and Valproic acid to try to prevent re-bound headache from occurring. Please call your Neurologist on Friday to follow up in their office as soon as possible. Return to the emergency department for: Numbness/tingling/weakness to your arms or legs Slurred speech Facial droop Changes in your voice Prescriptions: No Action elsyqnvpaw-sxyfwrzzfavvo-kiln 50-325-40 mg tablet 1 tab PO Q6H PRN (Reason: haeadace) Qty: 20 0RF ibuprofen 600 mg tablet 600 mg PO Q6H PRN (Reason: fever or pain) Qty: 30 0RF lorazepam [Ativan] 1 mg tablet 1 mg PO BEDTIME PRN (Reason: anxiety) Qty: 10 0RF Print Language: English
[2024-02-20] MEDS: Valproic Acid (as Sodium Salt) 500 MG in Dextrose 5 % 50 ML 52.5 MG IV (16:04)
[2024-02-20] MEDS: diphenhydrAMINE HCL 50 MG/ML VIAL IVPUSH (16:04)
[2024-02-20] MEDS: dexAMETHasone sod phosphate 10 MG/ML VIAL IVPUSH (16:04)
[2024-02-20] MEDS: Ketorolac Tromethamine 15 MG/ML VIAL IVPUSH (16:04)
[2024-02-20] MEDS: Metoclopramide HCl 10 MG/2 ML VIAL IVPUSH (16:04)
[2024-02-20] MEDS: Acetaminophen 1,000 MG/100 ML PIGGYBACK 400 MG IV (16:05)
[2024-02-20 18:08] VITALS: BP 113/75; PULSE 77; RESP 16; TEMP 36.9; O2SAT 98
[2024-02-20 18:24] VITALS: BP 113/75; PULSE 77; RESP 16; TEMP 36.9; O2SAT 98
== END 2024-02-20 18:26 | disposition home or self-care (01) ==
PROVIDERS: Emergency Provider Emergency Medicine; PCP Internal Medicine
DX: G43.909 Migraine, unspecified, not intractable, without status migrainosus (principal); Z03.818 Encounter for observation for suspected exposure to other biological agents ruled out
CPT/HCPCS: 0241U; 80053; 85025; 96365; 96366; 96375; 99284; J0131; J1100; J1200; J1885; J2765